=== PATIENT | male | born 1980 | race Caucasian/White ===

== ENCOUNTER 2017-12-08 11:24 | Emergency (ER) | payer SELFPAY ==
[2017-12-08] MEDS ORDERED: Acetaminophen 500 MG TAB ONE (12:01)
--- NOTE | 2017-12-08 18:55 | RAD ---
LEFT ANKLE THREE VIEWS: 12/08/2017 FINDINGS: Marked soft tissue swelling is seen laterally. In spite of this, no fracture is visible at this time . The ankle mortise appears normal. The calcaneus appears normal. IMPRESSION: Severe lateral swelling. POS: HOME
== END 2017-12-08 12:10 | disposition home or self-care (01) ==
LOC: BURERS 11:24
DX: S93.412A Sprain of calcaneofibular ligament of left ankle, initial encounter (principal); F17.210 Nicotine dependence, cigarettes, uncomplicated; W17.89XA Other fall from one level to another, initial encounter